=== PATIENT | male | born 1995 | race Caucasian/White ===

== ENCOUNTER 2016-10-12 09:29 | Emergency (ER) | payer OTHER ==
[~2016-10-12] VITALS: Ht 175.3 cm; Wt 63.0 kg
[~2016-10-12 09:29] MED LIST: PROVENTIL HFA6.7 GM IH
[2016-10-12] MEDS ORDERED: RITALIN10 MG PO (09:43)
[2016-10-12 10:05] LABS: ADD MIUA? YES; BILIRUBIN NEGATIVE; BLOOD LARGE; COLOR YELLOW ((YELLOW)); GLUCOSE (STRIP) NEGATIVE; KETONES NEGATIVE; LEUKOCYTES NEGATIVE; NITRITE NEGATIVE; PROTEIN (STRIP) NEGATIVE; SPECIFIC GRAVITY 1.018 (1.000-1.030); UROBILINOGEN 0.2 MG/DL (0.2-1.0)
[2016-10-12 10:16] LABS: BACTERIA NONE SEEN /HPF; EPITHELIAL CELLS RARE /HPF; MUCUS TRACE /LPF; WHITE BLOOD CELLS 0-5 /HPF (0-5)
[2016-10-12 10:17] LABS: EOSINOPHIL (%) 0.6 % (0-5); HEMATOCRIT 47.1 % (38.0-50.0); IMMATURE GRANULOCYTE (%) 0.2 % (0.0-0.7); INSTRUMENT ABS NEUTROPHIL CT 4.1 K/uL; LYMPHOCYTE COUNT 1.4 K/uL (1.0-2.8); MCH 30.4 PG (29.0-34.0); MCHC 33.5 G/DL (30.0-36.0); MCV 90.8 FL (86-99); MEAN PLAT.VOLUME 9.5 uM^3 (9.0-12.4); MONOCYTE (%) 13.9 % (3-12); MONOCYTE COUNT 0.9 K/uL (0-0.8); NEUTROPHIL (%) 63.4 % (45-76); NEUTROPHIL COUNT 4.1 K/uL (1.8-6.4); PLATELET COUNT 229 K/uL (156-360); RBC DIS.WIDTH-CV 11.5 % (11.8-14.6); RBC DIS.WIDTH-SD 38.5 % (39-53); RED BLOOD COUNT 5.19 M/uL (4.00-5.50); WHITE BLOOD COUNT 6.4 K/uL (4.1-10.2)
[2016-10-12 10:26] LABS: CHLORIDE 107 mEq/L (99-109); POTASSIUM 3.7 mEq/L (3.7-5.4); SODIUM 141 mEq/L (136-147)
[2016-10-12 10:28] LABS: GLUCOSE 88 mg/dL (70-99)
[2016-10-12 10:29] LABS: ANION GAP 8 MEQ/L (2-14)
[2016-10-12 10:30] LABS: TOTAL BILIRUBIN 0.5 mg/dL (0.0-1.0)
[2016-10-12 10:31] LABS: ALKALINE PHOSPHATASE 54 IU/L (3-129)
[2016-10-12 10:32] LABS: GFR ESTIMATE (CALCULATED) > 59 mL/min/
[2016-10-12 10:33] LABS: UREA NITROGEN (BUN) 8 mg/dL (9-23)
[2016-10-12] MEDS ORDERED: FLAGYL500 MG PO (11:42)
[2016-10-12] MEDS ORDERED: BENTYL20 MG PO (11:42)
[2016-10-12] MEDS ORDERED: CIPRO500 MG PO (11:42)
[2016-10-12 12:00] VITALS: BP 140/98
== END 2016-10-12 12:01 | disposition home or self-care (01) ==
LOC: EME 09:29
PROVIDERS: Emergency Medicine
DX: K52.9 Noninfective gastroenteritis and colitis, unspecified (principal)
CPT/HCPCS: 74177; 80053; 81003; 85025; 99281; 99285; J7030